=== PATIENT | male | born 1985 | race Caucasian/White ===

== ENCOUNTER 2020-03-16 15:55 | Inpatient (IN) | payer MEDICAID ==
[~2020-03-16] VITALS: Ht 172.7 cm; Wt 79.8 kg
[2020-03-16] MEDS ORDERED: PIPERACILLIN/TAZ 3.375G PREMIX 50 ML IV ONE (18:15)
[2020-03-16] MEDS ORDERED: VANCOMYCIN 1 G PREMIX 200 ML IV ONE (18:15)
[2020-03-16 18:51] LABS: BASOPHILS % 0.4 % (0.0-2.0); HEMATOCRIT. 40.8 % (42.0-52.0); HEMOGLOBIN. 14.7 g/dL (14.0-18.0); LYMPHOCYTES % 28.3 % (20.0-50.0); MEAN CORPUSCULAR VOLUME 85.7 fL (80.0-94.0); MEAN PLATELET VOLUME 7.1 fl (7.4-10.4); MONOCYTES % 7.2 % (2.0-8.0); NEUTROPHILS % 63.1 % (40.0-76.0); PLATELET 129 x1000/uL (130-400); RED BLOOD CELL COUNT 4.76 mill/uL (4.7-6.1); RED CELL DISTRIBUTION WIDTH 13.3 % (11.6-14.6)
[2020-03-16 18:52] LABS: CHLORIDE 105 mEq/L (98-107)
[2020-03-16 18:53] LABS: CLARITY URINE CLEAR (CLEAR); COLOR URINE YELLOW (YELLOW); KETONES URINE TRACE (NEGATIVE); LEUKOCYTE ESTERASE URINE NEGATIVE (NEGATIVE); NITRITE URINE NEGATIVE (NEGATIVE); OCCULT BLOOD URINE NEGATIVE (NEGATIVE); PROTEIN URINE NEGATIVE (NEGATIVE); SPECIFIC GRAVITY URINE 1.025 (1.005-1.030)
[2020-03-16 18:57] LABS: C REACTIVE PROTEIN QUANT 0.9 mg/L (0.0-3.0); PROTHROMBIN TIME 10.5 sec (9.6-11.0)
[2020-03-16 19:21] LABS: *COCAINE SCREEN URINE NEGATIVE (NEGATIVE); METHADONE URINE SCREEN NEGATIVE (NEGATIVE); OPIATES URINE SCREEN NEGATIVE (NEGATIVE)
[2020-03-16 19:22] LABS: *AMPHETAMINES SCREEN URINE NEGATIVE (NEGATIVE); *BARBITURATES SCREEN URINE NEGATIVE (NEGATIVE); *BENZODIAZEPINES SCREEN URINE NEGATIVE (NEGATIVE); CANNABINOID URINE SCREEN NEGATIVE (NEGATIVE); PHENCYCLIDINE URINE SCREEN NEGATIVE (NEGATIVE)
[2020-03-16] MEDS ORDERED: GUAIFENESIN 200MG/10ML SUGAR FREE UDC PO PRN (20:15)
[2020-03-16] MEDS ORDERED: NITROGLYCERIN 0.4MG TABLET SL SL PRN (20:15)
[2020-03-16] MEDS ORDERED: ONDANSETRON HCL 4MG/2ML INJ IV PRN (20:15)
[2020-03-16] MEDS ORDERED: LORAZEPAM 0.5MG TABLET PO PRN (20:15)
[2020-03-16] MEDS ORDERED: IPRATROPIUM/ALBUTEROL 0.5-3(2.5)MG/3ML NEB ORI PRN (20:15)
[2020-03-16] MEDS ORDERED: CLONIDINE 0.1MG TABLET PO PRN (20:15)
[2020-03-16] MEDS ORDERED: MAGNESIUM/ALUMINUM HYDROXIDE/SIMETHICONE 30ML UDC PO PRN (20:15)
[2020-03-16] MEDS ORDERED: KETOROLAC 15MG/ML VIAL IV PRN (20:15)
[2020-03-16] MEDS ORDERED: DOCUSATE SODIUM 100MG CAPSULE PO PRN (20:15)
[2020-03-16] MEDS ORDERED: ACETAMINOPHEN 325MG TABLET PO PRN ×2 (20:15)
[2020-03-16] MEDS ORDERED: ZOLPIDEM TARTRATE 5MG TABLET PO PRN (21:00)
[2020-03-16] MEDS ORDERED: HALOPERIDOL LACTATE 5MG/ML VIAL IM PRN (23:15)
[2020-03-17 00:15] VITALS: BP 117/69
[2020-03-17 04:00] VITALS: BP 118/73
[2020-03-17] MEDS ORDERED: RISP2 MT (06:13)
[2020-03-17] MEDS ORDERED: BENZ1TAB7 MT (06:13)
[2020-03-17] MEDS ORDERED: DIVA500T3 PO (06:13)
[2020-03-17] MEDS ORDERED: LEVO50TA MT (06:13)
[2020-03-17 07:25] LABS: T4 FREE 1.16 ng/dL (0.76-1.46)
[2020-03-17 08:00] VITALS: BP 106/65
[2020-03-17] MEDS: ASCORBIC ACID 500 MG TABLET PO SCH ×3 (10:12→22:03)
[2020-03-17] MEDS: FAMOTIDINE 20MG TABLET PO SCH ×3 (10:12→22:03)
[2020-03-17] MEDS: ZINC SULFATE 220 MG ( 50 ) CAPSULE PO SCH (10:12)
[2020-03-17] MEDS: RISPERIDONE 0.5MG TABLET PO SCH ×2 (10:13→17:00)
[2020-03-17 12:00] VITALS: BP 119/74
[2020-03-17] MEDS ORDERED: BUPIVACAINE HCL/PF 0.5% (5MG/ML) 10ML ONE (14:12)
[2020-03-17] MEDS ORDERED: BACITRACIN 50,000 UNITS/VIAL ONE (14:12)
[2020-03-17] MEDS ORDERED: GENTAMICIN SULF 40MG/ML 2ML VIAL ONE (14:12)
[2020-03-17] MEDS ORDERED: LIDOCAINE HCL 1% 20ML VIAL (Pyxis) INJ ONE (14:12)
[2020-03-17 16:00] VITALS: BP 112/76
[2020-03-17 20:19] VITALS: BP 104/70
[2020-03-17] MEDS: ENOXAPARIN 40MG/0.4ML SYR SUBCUT SCH (21:59)
[2020-03-17] MEDS: BENZTROPINE MESYLATE 1MG TABLET PO SCH (22:00)
[2020-03-17] MEDS: DIVALPROEX SODIUM 500MG DR TABLET PO SCH (22:03)
[2020-03-18 00:16] VITALS: BP 111/64
[2020-03-18 04:00] VITALS: BP 105/75
[2020-03-18] MEDS: LEVOTHYROXINE SODIUM 50MCG TABLET PO SCH (06:20)
[2020-03-18 08:00] VITALS: BP 121/71
[2020-03-18] MEDS: ASCORBIC ACID 500 MG TABLET PO SCH ×2 (08:58→20:28)
[2020-03-18] MEDS: FAMOTIDINE 20MG TABLET PO SCH ×2 (08:58→20:28)
[2020-03-18] MEDS: BENZTROPINE MESYLATE 1MG TABLET PO SCH ×2 (08:58→20:28)
[2020-03-18] MEDS: RISPERIDONE 0.5MG TABLET PO SCH ×2 (08:58→16:37)
[2020-03-18] MEDS: ZINC SULFATE 220 MG ( 50 ) CAPSULE PO SCH (08:58)
[2020-03-18] MEDS ORDERED: RISPERIDONE 0.5MG TABLET PO SCH (09:00)
[2020-03-18] MEDS ORDERED: BACITRACIN 15GM TUBE TOP ONE (14:33)
[2020-03-18] MEDS ORDERED: GENTAMICIN SULF 40MG/ML 2ML VIAL ONE (14:33)
[2020-03-18] MEDS ORDERED: LIDOCAINE HCL 1% 20ML VIAL (Pyxis) INJ ONE (14:33)
[2020-03-18] MEDS ORDERED: BUPIVACAINE HCL/PF 0.5% (5MG/ML) 10ML ONE ×2 (14:34→14:35)
[2020-03-18] MEDS ORDERED: BACITRACIN 50,000 UNITS/VIAL ONE (14:34)
[2020-03-18] MEDS ORDERED: MIDAZOLAM HCL 2 MG/2 ML VIAL ONE (17:52)
[2020-03-18] MEDS ORDERED: PROPOFOL 200MG/20ML VIAL IV ONE (17:52)
[2020-03-18] MEDS ORDERED: FENTANYL CITRATE/PF 50MCG/ML 2ML VIAL ONE (17:52)
[2020-03-18] MEDS ORDERED: MEPERIDINE HCL/PF 25MG/ML CPJ IV PRN (18:30)
[2020-03-18] MEDS: HYDROMORPHONE HCL/PF 2MG/ML CPJ IV PRN ×3 (19:08→19:41)
[2020-03-18 20:00] VITALS: BP 113/73
[2020-03-18] MEDS: DIVALPROEX SODIUM 500MG DR TABLET PO SCH (20:29)
[2020-03-18] MEDS: ENOXAPARIN 40MG/0.4ML SYR SUBCUT SCH (20:32)
[2020-03-19] VITALS: BP 103/66
[2020-03-19 04:00] VITALS: BP 93/54
[2020-03-19] MEDS: LEVOTHYROXINE SODIUM 50MCG TABLET PO SCH (06:30)
[2020-03-19] MEDS: ZINC SULFATE 220 MG ( 50 ) CAPSULE PO SCH (08:19)
[2020-03-19] MEDS: ASCORBIC ACID 500 MG TABLET PO SCH (08:19)
[2020-03-19] MEDS: BENZTROPINE MESYLATE 1MG TABLET PO SCH (08:19)
[2020-03-19] MEDS: FAMOTIDINE 20MG TABLET PO SCH (08:19)
[2020-03-19] MEDS: RISPERIDONE 0.5MG TABLET PO SCH (08:19)
== END 2020-03-19 12:00 | disposition home or self-care (01) | DRG 342 ==
LOC: ER 15:55 → 6EST 19:15 → EDBEDREQTM 19:18 → EDBEDREQ 19:18 → ENRESERV 21:03 → 6EST 03-17 01:53
PROVIDERS: ADMIT Internal Medicine; ATTEND Internal Medicine
PROC: 0HDRXZZ Extraction of Toe Nail, External Approach (ICD-10-PCS; principal; 2020-03-18)
DX: S92.491A Other fracture of right great toe, initial encounter for closed fracture (principal); E83.51 Hypocalcemia; F20.9 Schizophrenia, unspecified; L60.2 Onychogryphosis; L03.031 Cellulitis of right toe; Y99.8 Other external cause status; Z20.828 Contact with and (suspected) exposure to other viral communicable diseases; L60.0 Ingrowing nail; M86.8X7 Other osteomyelitis, ankle and foot; X58.XXXA Exposure to other specified factors, initial encounter; Y93.89 Activity, other specified; Y92.89 Other specified places as the place of occurrence of the external cause
CPT/HCPCS: 36415; 73660; 73718; 80053; 80305; 81003; 83036; 83605; 84145; 84439; 84443; 85025; 85651; 86140; 88300; 93005; 96365; 99285; J1170; J1580; J1650; J2175; J2250; J2405; J2543; J2704; J3010; J3370; J3490; U0003-CS